=== PATIENT | female | born 1965 | race Two or more races ===

== ENCOUNTER 2022-07-27 12:06 | Emergency (ER) | payer MEDICARE, MEDICAID ==
[~2022-07-27] VITALS: Ht 149.9 cm; Wt 45.0 kg
[2022-07-27 12:36] VITALS: BP 96/51
[2022-07-27 17:51] LABS: BASOPHILS % 0.8 % (0.0-2.0); EOSINOPHILS % 0.3 % (0.0-5.0); HEMATOCRIT. 40.6 % (36.0-48.0); HEMOGLOBIN. 13.5 g/dL (12.0-16.0); LYMPHOCYTES % 21.2 % (20.0-50.0); MEAN CORPUSCULAR HEMOGLOBIN 32.2 pg (28.0-32.0); MEAN PLATELET VOLUME 7.1 fl (7.4-10.4); MONOCYTES % 7.1 % (2.0-8.0); NEUTROPHILS % 70.6 % (40.0-76.0); PLATELET 267 x1000/uL (130-400); RED BLOOD CELL COUNT 4.18 mill/uL (4.2-5.4); RED CELL DISTRIBUTION WIDTH 13.3 % (11.6-14.6)
[2022-07-27 18:02] LABS: CHLORIDE 108 mEq/L (98-107)
[2022-07-27 18:03] LABS: D-DIMER 0.49 mg/L FEU (<0.50); PARTIAL THROMBOPLASTIN TIME 27.6 sec (23.4-31.0)
== END 2022-07-27 20:56 | disposition left against medical advice (07) ==
LOC: ER 12:13
DX: L81.9 Disorder of pigmentation, unspecified (principal); R63.4 Abnormal weight loss; Z68.20 Body mass index [BMI] 20.0-20.9, adult; R94.31 Abnormal electrocardiogram [ECG] [EKG]
CPT/HCPCS: 36415; 71045; 80053; 83880; 84484; 85025; 85379; 93005; 93970; 99285

== ENCOUNTER 2023-02-08 13:16 | Emergency (ER) | payer MEDICARE, MEDICAID ==
[2023-02-08 11:14] VITALS: RESP 16
[2023-02-08 13:50] VITALS: PULSE 87
[2023-02-10] MEDS ORDERED: KEPP500 MT (13:57)
== END 2023-02-08 17:40 | disposition left against medical advice (07) ==
LOC: ER 13:53
DX: Z53.21 Procedure and treatment not carried out due to patient leaving prior to being seen by health care provider (principal)